=== PATIENT | male | born 1940 | race Caucasian/White ===

== ENCOUNTER 2017-11-05 09:12 | Day surgery (SDC) | payer OTHER ==
[~2017-11-05] VITALS: Ht 180.3 cm; Wt 85.4 kg
[~2017-11-05 09:12] MED LIST: ALBIPROI INH; ALBU90OI61 INH; AZIT250 PO; BECL80OI INH; BISA5EC PO; BP MED; CEFD300 PO; CEPH500 PO; CIPR500 PO; COMBIVENT RESPIM4 GM INH; Celebrex200 MG PO; Cipro500 MG PO; DIAZ5 PO; EPIN.3I IM; FEXO180 PO; FEXPSEER PO; FINACEA 15%; FLUT110OIA IH; FURO20; FURO20 PO; GLUCHON PO; GLUCOSAMINE1000 MG; HCTZ; HYDACE10B PO; HYDACE5 PO; IRON325 MG PO; LISI5 PO; MAGCIT300 PO; METO50ER PO; METR59TL; METR70GEL; Micro-K10 MEQ; Monodox100 MG PO; NEBI5 PO; Norco 5-325 Ta1 EACH PO; OMEP20ER PO; OXYACE5T PO; Omeprazole20 M1 PO; POTCHL10ER PO; PRED10 PO; PRED20 PO; Prednisone20 MG PO; QVAR7.3 G1 IH; QVAR7.3 G1 INH; RXCLIN PO; SIMV10 PO; SIMV5 PO; SUCR1 PO; TAMS.4ER PO; THEO200ERA PO; TRIHYD253A PO; WARF2.5 PO; WARF5 PO; [UNRECOGNIZED DRUG - REMARK]
== END 2017-11-05 12:11 | disposition home or self-care (01) ==
LOC: ORSCSDS 09:12
PROVIDERS: Internal Medicine Gastroenterology
PROC: 0DB58ZX Excision of Esophagus, Via Natural or Artificial Opening Endoscopic, Diagnostic (ICD-10-PCS; principal; 2017-11-05 10:30)
DX: K22.70 Barrett's esophagus without dysplasia (principal); R13.10 Dysphagia, unspecified; K44.9 Diaphragmatic hernia without obstruction or gangrene; G47.30 Sleep apnea, unspecified; Z79.01 Long term (current) use of anticoagulants; Z79.899 Other long term (current) drug therapy
CPT/HCPCS: 88305; J7120

== ENCOUNTER 2018-08-18 15:55 | Emergency (ER) | payer OTHER ==
[~2018-08-18] VITALS: Ht 180.3 cm; Wt 81.7 kg
== END 2018-08-18 18:46 | disposition home or self-care (01) ==
LOC: ER 15:55
DX: S83.92XA Sprain of unspecified site of left knee, initial encounter (principal); X50.9XXA Other and unspecified overexertion or strenuous movements or postures, initial encounter; Z91.030 Bee allergy status; Z88.0 Allergy status to penicillin; Z88.5 Allergy status to narcotic agent; Z79.899 Other long term (current) drug therapy; Z79.01 Long term (current) use of anticoagulants; I48.91 Unspecified atrial fibrillation
CPT/HCPCS: 73564

== ENCOUNTER 2018-12-17 13:12 | Day surgery (SDC) | payer OTHER ==
[~2018-12-17] VITALS: Ht 180.3 cm; Wt 85.2 kg
[~2018-12-17 13:12] MED LIST changes: +CHOL10002 PO; +ELIQUIS5 MG PO; -GLUCOSAMINE1000 MG; +GLUCOSAMINE1000 MG PO; +LOSARTAN-HCTZ1 EACH PO; +METO50 PO; +METR59TL TOP; +QVAR REDIHALE10.6 G1 INH; -QVAR7.3 G1 INH
--- NOTE | 2018-12-17 13:59 | NUR ---
PT ADMITTED TO [facility]. AGREES WITH PLANNED SURGERY. LUNG SOUNDS CLEAR. ABRASIONNOTED ON RIGHTKNEE, DR. CHANG INFORMED AND STATED HE WILL COME AND TAKE A LOOK AT IT.
--- NOTE | 2018-12-17 14:15 | NUR ---
SONIA TO NARES BILATERALLY. DR. MEDINA IN TO LOOK AT ABRASION ON RIGHT KNEE. STATES OK TO PROCEDE WITH SURGERY.
--- NOTE | 2018-12-17 18:50 | NUR ---
PATIENT ARRIVED TO ROOM 223 VIA BED FROM PACU. AWAKE. ORIENTED TO ROOM, CALL LIGHT, ROUNDING. PATIENT DENIES PAIN, NAUSEA, SOB. VSS. L KNEE WITH AQUACEL DRESSING, D&I. PATIENT HAD SPINAL, UNABLE TO MOVE LE'S YET. LS CLEAR. HRR. IVF INFUSING W/O PROBS. PAS AND ICE IN PLACE. CALL LIGHT IN REACH. WILL REPORT TO NOC RN,
[2018-12-18 06:27] LABS: BASOPHILS ABSOLUTE AUTO 0.01 K/mm3 (0.00-0.23); BASOPHILS PERCENT AUTO 0 % (0-2); EOSINOPHILS ABSOLUTE AUTO 0.04 K/mm3 (0.00-0.68); EOSINOPHILS PERCENT AUTO 1 % (0-6); Hematocrit 34.7 % (37.0-53.0); Hemoglobin 11.5 g/dL (13.5-17.5); IMMATURE GRAN ABSOLUTE AUTO 0.01 K/mm3 (0.00-0.10); IMMATURE GRAN PERCENT AUTO 0 % (0-1); LYMPHOCYTES ABSOLUTE AUTO 1.15 K/mm3 (0.84-5.20); LYMPHOCYTES PERCENT AUTO 19 % (21-46); MONOCYTES ABSOLUTE AUTO 0.66 K/mm3 (0.16-1.47); MONOCYTES PERCENT AUTO 11 % (4-13); Mean Corpuscular HGB 32.2 pg (26.0-34.0); Mean Corpuscular HGB Conc 33.1 g/dL (31.5-36.5); Mean Corpuscular Volume 97 fL (80-100); Mean Platelet Volume 9.7 fL (9.1-12.4); NEUTROPHILS ABSOLUTE AUTO 4.33 K/mm3 (1.96-9.15); NEUTROPHILS PERCENT AUTO 70 % (41-73); Platelet Count 117 K/mm3 (150-400); RDW Coefficient Variation 12.6 % (11.7-14.2); RDW Standard Deviation 44.9 fL (35.1-46.3); Red Blood Cell Count 3.57 M/mm3 (4.30-5.90)
[2018-12-18 07:15] LABS: Bun/Creatinine Ratio 23.6 (12.0-20.0); Calcium, Blood 8.5 mg/dL (8.5-10.1); Creatinine, Blood 1.48 mg/dL (0.60-1.20)
--- NOTE | 2018-12-18 07:31 | NUR ---
SUMMARY POD #1 L TKA SCOT DRSG REMAINS C/D/I, PT HAS AMBULATED IN HALLS X 1. CIRC WNL. PAIN WNL. TOLERATING PO INTAKE. TEDS & POLAR PACK IN PLACE. PT WAS STRAIGHT CATHED X1, 700 ML OF URINE WAS OBTAINED. PT HAS A HX OF RETENTION. REPORT WAS GIVEN TO DAY RN.
[2018-12-18] MEDS ORDERED: Percocet 5-3251 EACH PO (09:48)
--- NOTE | 2018-12-18 10:00 | NUR ---
12/18/18 Faby Hernandez VERIFICATIONS: EDIT CHART.
--- NOTE | 2018-12-18 14:56 | NUR ---
PATIENT D/C'D HOME WITH SPOUSE AT THIS TIME. PATIENT STATES UNDERSTANDING OF MEDS, ACTIVITY, WOUND CARE, F/U APPT, OP PT, ETC. PATIENT HAS NOT VOIDED SINCE STRAIGHT CATH BEFORE CHANGE OF SHIFT. DENIES URGE TO VOID. BS = 238 ML. PATIENT STATES HX OF SELF CATH PRN, HAS SUPPLIES, AND WILL DO SO PRN. ADVISED PATIENT TO CONTACT PCP IF PROBLEM PERSISTS. PATIENT STATED SOME NAUSEA AFTER TAKING OXYCODONE 5MG; ADVISED PATIENT TO START WITH 1/2 AT HOME IF NEEDED OR TAKE APAP. NO FURTHER C/O.
== END 2018-12-18 14:56 | disposition home or self-care (01) ==
LOC: ORSCMMR 13:12 → ORD 14:15 → ORSCMMR 14:15 → SURS 18:51 → ORSCMMR 12-18 14:56
PROVIDERS: Orthopaedic Surgery
PROC: 0SRD0JA Replacement of Left Knee Joint with Synthetic Substitute, Uncemented, Open Approach (ICD-10-PCS; principal; 2018-12-17 15:15)
DX: M17.12 Unilateral primary osteoarthritis, left knee (principal); Z01.818 Encounter for other preprocedural examination; I10 Essential (primary) hypertension; G47.33 Obstructive sleep apnea (adult) (pediatric); K22.70 Barrett's esophagus without dysplasia; Z79.899 Other long term (current) drug therapy; I48.91 Unspecified atrial fibrillation; Z79.01 Long term (current) use of anticoagulants
CPT/HCPCS: 36415; 73560-LT; 80048; 85025; 86850; 86900; 86901; 88300; 97116; 97162; 97530; C1776; J0171; J0735; J1885; J2250; J2405; J2704; J2795; J7120

== ENCOUNTER → 2020-06-09 | Outpatient (CLI) | payer OTHER ==
[~2020-06-09] MED LIST changes: +Percocet 5-3251 EACH PO
[2020-06-10 08:18] LABS: Stool Occult Bld Immuno 1 Negative (NEGATIVE)
== END | disposition home or self-care (01) ==
LOC: LAB SHORT 13:36
PROVIDERS: Nurse Practitioner Family
DX: Z12.11 Encounter for screening for malignant neoplasm of colon (principal)
CPT/HCPCS: G0328

== ENCOUNTER 2021-03-19 11:03 | Day surgery (SDC) | payer OTHER ==
[~2021-03-19] VITALS: Ht 180.3 cm; Wt 90.2 kg
[2021-03-19] MEDS ORDERED: ALLO100 PO (11:33)
== END 2021-03-19 12:38 | disposition home or self-care (01) ==
LOC: ORSCSDS 11:03
PROVIDERS: Internal Medicine Gastroenterology
PROC: 0DB58ZX Excision of Esophagus, Via Natural or Artificial Opening Endoscopic, Diagnostic (ICD-10-PCS; principal; 2021-03-19 12:30)
DX: K22.70 Barrett's esophagus without dysplasia (principal); K44.9 Diaphragmatic hernia without obstruction or gangrene; I10 Essential (primary) hypertension; J45.909 Unspecified asthma, uncomplicated; Z79.01 Long term (current) use of anticoagulants; Z79.899 Other long term (current) drug therapy
CPT/HCPCS: 88305; J2704; J7120